=== PATIENT | male | born 1975 | race Caucasian/White ===

== ENCOUNTER 2023-04-13 10:45 | Emergency (ER) | payer OTHER ==
[2023-04-13 11:01] VITALS: BP 148/97; PULSE 82; RESP 16; TEMP 98.6; BMI 29.7
== END 2023-04-13 11:25 | disposition home or self-care (01) ==
LOC: FER 10:45
DX: R21 Rash and other nonspecific skin eruption (principal); L03.211 Cellulitis of face
CPT/HCPCS: 99283-25